=== PATIENT | female | born 1950 | race Caucasian/White ===

== ENCOUNTER → 2018-02-22 | Outpatient (CLI) | payer OTHER | LOC: FIMAGING 14:24 | PROVIDERS: ATTEND Orthopaedic Surgery | DX: M17.11 Unilateral primary osteoarthritis, right knee (principal); Z01.818 Encounter for other preprocedural examination ==

== ENCOUNTER 2018-03-17 09:25 | Inpatient (IN) | payer OTHER ==
--- NOTE | 2018-02-18 16:20 | ASMTCMCOM ---
CM Note CM Note Notes: Spoke with pt per Aiyana Napier request. Pt reports she likely has no one who can stay with her post-op and will likely be interested in SNF. Pt was emailed the [facility] SNF list and link to joint class to [email or web address], she reports she may be most interested in [facility]. Date Signed: 02/18/2018 04:20 PM Electronically Signed By:TYLER Barajas
--- NOTE | 2018-03-17 05:58 | PDHPUP ---
History & Physical Update H&P update statement: This history and physical update is based on an assessment of the patient which was completed after admission or registration (within 24 hours), but prior to the surgery/procedure. H&P update: H&P reviewed & patient examined, no change in patient's condition since H&P completed
[~2018-03-17 09:25] MED LIST: ACETAMINOPHEN 325 MG TAB PO ONE; DEXAMETHASONE 4 MG/ML VIAL IVP ONE; FAMOTIDINE 20 MG TAB PO ONE; ROPIVACAINE 0.2% 80 MG, EPINEPHrine 0.2 MG, KETOROLAC TROMETHAMINE 30 MG in SYRINGE 0 ML IU ONE; TRANEXAMIC ACID 3,000 MG in NS (SYRINGE) 50 ML IRR ONE; ceFAZolin 2 GM/DEXTROSE 100 ML IV ONE
[2018-03-17] MEDS ORDERED: LIDOCAINE 1% 2 ML INJ ID PRN (09:59)
[2018-03-17] MEDS ORDERED: LIDOCAINE 1% 2 ML INJ ONE (10:03)
[2018-03-17] MEDS ORDERED: TRANEXAMIC ACID 3,000 MG/50 ML BAG IRR ONE (10:15)
[2018-03-17] MEDS ORDERED: MIDAZOLAM 2 MG/2 ML VIAL IVP ONE (11:44)
[2018-03-17] MEDS ORDERED: fentaNYL 100 MCG/2 ML INJ ONE (12:15)
[2018-03-17] MEDS ORDERED: PROPOFOL/EMULSION 500 MG/50 ML BOTTLE IV ONE (12:16)
[2018-03-17] MEDS ORDERED: BUPIVACAINE 0.5% 30 ML SDV ONE (12:30)
[2018-03-17] MEDS ORDERED: fentaNYL 100 MCG/2 ML INJ IVP PRN (12:54)
[2018-03-17] MEDS ORDERED: NALOXONE HCL 0.4 MG/ML INJ IVP PRN (12:54)
[2018-03-17] MEDS ORDERED: LR 500 ML IV PRN (12:54)
[2018-03-17] MEDS ORDERED: ONDANSETRON 4 MG/2 ML VIAL IVP PRN ×2 (12:54→13:55)
[2018-03-17] MEDS ORDERED: ALBUTEROL 3 ML DEYVIAL IH PRN (12:54)
[2018-03-17] MEDS ORDERED: PROMETHAZINE HCL 25 MG/ML INJ IVP PRN ×2 (12:54→13:55)
[2018-03-17] MEDS ORDERED: oxyCODONE IR 5 MG TAB PO PRN (12:54)
[2018-03-17] MEDS ORDERED: LABETALOL HCL 5 MG/ML 20 ML MDV IVP PRN (12:54)
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
[2018-03-17] MEDS ORDERED: ONDANSETRON DISINTEGRATING 4 MG TAB PO PRN (13:55)
[2018-03-17] MEDS ORDERED: BISACODYL 10 MG SUPP PR PRN (13:55)
[2018-03-17] MEDS ORDERED: METOCLOPRAMIDE 10 MG/2 ML VIAL IVP PRN (13:55)
[2018-03-17] MEDS ORDERED: MAGNESIUM HYDROXIDE 30 ML UDCUP PO PRN (13:55)
[2018-03-17] MEDS ORDERED: PROMETHAZINE HCL 25 MG SUPPR PR PRN (13:55)
[2018-03-17] MEDS ORDERED: TEMAZEPAM 15 MG CAP PO PRN (13:55)
[2018-03-17] MEDS ORDERED: LACTULOSE 20 GM/30 ML UDCUP PO PRN (13:55)
[2018-03-17] MEDS ORDERED: CYCLOBENZAPRINE 10 MG TAB PO PRN (13:55)
[2018-03-17] MEDS ORDERED: DIPHENOXYLATE/ATROPINE LOMOTIL 1 TAB PO PRN (13:55)
[2018-03-17] MEDS ORDERED: diphenhydrAMINE 25 MG CAP PO PRN (13:55)
[2018-03-17] MEDS ORDERED: POLYETHYLENE GLYCOL 3350 17 GM PKT PO PRN (13:55)
--- NOTE | 2018-03-17 13:55 | POSTOPPROG ---
Post Op Note Date of Operation: 03/17/18 Surgeon: Bill Sarkar Automobile Service Writer: cuba sarkar PA-C Anesthesiologist: dr. serna Anesthesia: Spinal, Other (Specify) (adductor canal block) Pre-op Diagnosis: Right knee OA Post-op Diagnosis: same Indication: right knee pain Procedure: R TKA robot assisted and sensor assisted Findings: severe knee OA Inf/Abcess present in the surg proc area at time of surgery?: No EBL: 50-100
[2018-03-17] MEDS ORDERED: ceFAZolin 2 GM/DEXTROSE 100 ML IV SCH (14:00)
[2018-03-17] MEDS ORDERED: LR 1,000 ML IV SCH (14:00)
--- NOTE | 2018-03-17 14:09 | POSTANESTH ---
Post Anesthetic Evaluation Cardiovascular Status: Normal, Stable Respiratory Status: Normal, Stable Level of Consciousness/Mental Status: Can Participate in Eval Pain Control: Adequate, Prn Tx Ordered Nausea/Vomiting Control: Adequate, Prn Tx Ordered Complications Possibly Related to Anesthesia: None Noted (Adductor canal block done in PACU. Bupivicaine .5% 20 cc given. Ultrasound guidance. No complications. Images in patient's chart.)
--- NOTE | 2018-03-17 16:54 | PDMN ---
Medical Necessity Medical necessity: [facility] S700 knee arthroplasty: per Dr Napier please keep INPT - pt 67 yr old female OP: TKA
[2018-03-17] MEDS: ACETAMINOPHEN 325 MG TAB PO SCH (19:32)
[2018-03-17] MEDS: SENNOSIDES/DOCUSATE SODIUM TAB PO SCH (22:00)
[2018-03-17] MEDS: ASPIRIN 81 MG CHEWABLE TAB PO SCH (22:00)
[2018-03-17] MEDS: ceFAZolin 2 GM/DEXTROSE 100 ML IV SCH (22:00)
[2018-03-17] MEDS: FAMOTIDINE 20 MG TAB PO SCH (22:00)
[2018-03-18] MEDS: ACETAMINOPHEN 325 MG TAB PO SCH ×3 (00:11→12:47)
[2018-03-18] MEDS: ceFAZolin 2 GM/DEXTROSE 100 ML IV SCH (05:18)
[2018-03-18] MEDS: ASPIRIN 81 MG CHEWABLE TAB PO SCH (08:32)
[2018-03-18] MEDS: FAMOTIDINE 20 MG TAB PO SCH (08:32)
[2018-03-18] MEDS: oxyCODONE IR 5 MG TAB PO PRN ×2 (08:33→13:44)
[2018-03-18] MEDS: SENNOSIDES/DOCUSATE SODIUM TAB PO SCH (08:33)
--- NOTE | 2018-03-18 08:34 | PDIAF ---
- Diagnosis Diagnosis: s/p R TKA Code Status: Full Code - Medication Management Discharge Medications: electronically signed and located in the Home Medication List. - Orders Services needed: Physical Therapy Diet Recommendation: no restrictions on diet Diet Texture: Regular Texture Diet Harmeet Stockings Discontinue Date: 2 weeks Wound Care Instructions: see instructions below. remove incision dressing is two weeks. then it does not need to be covered. if drainage occurs, dressing will turn black, please contact Dr. Chauhan's office for further eval if any incision dressing questions arise Additional Instructions: Joint Protocol-Knee Replacement Follow up with Dr. Lindquist office as scheduled After surgery instructions: You received an adductor canal nerve block yesterday. It alleviates pain for approximately 30 hours. Once the numbness to your anterior coelho wears off, your pain will increase. Start taking narcotics even low dose narcotic pain meds as the numbness decreases Take Aspirin 81mg by mouth morning and evening for 4 weeks (helps to prevent blood clots) Wear thigh high HARMEET hose on both legs during the daytime for 2 weeks (helps to prevent blood clots and decrease swelling in the surgical leg). It is ok to remove HARMEET hose at night time to give your legs a break. It is common for swelling and bruising to occur in the entire surgical leg even extending to the foot, if concerned call Dr. Ryan office [phone] Elevate the surgical leg with the ankle above the hip several times a day. ~ Ideally anytime you are resting throughout the day. Attempt to keep the knee straight while elevating by placing pillows under the ankle instead of the knee to elevate. This may be painful, so please do as much as tolerated. ~This will help you achieve full knee extension. Use a walker for 7-14 days Start outpatient physical therapy in 7-10 days Wear an popeye wrap on the knee for 3-4 days after surgery, then it is no longer needed Do exercises in the book 2-3 times a day Ice at least 3-5 times a day for 30 minutes each time, if not more often. ~~We also recommend using the ice machine before falling asleep to help with pain If you have further questions that are not addressed here, please look at the information packet handed to you at the preop appointment. ~Most will be answered on the FAQs, after surgery instructions and incision care pages. *IF YOU HAVE A LIFE THREATENING EMERGENCY, CALL 911. FOR NON-LIFE THREATENING ISSUES, PLEASE CALL DR. LINDQUIST OFFICE FIRST. A PHYSICIAN IS CASTING MACHINE OPERATOR HELPER 24/11. Incision/Dressing Care: May shower tomorrow, Incision dressing is waterproof. Do not soak in water, but shower is ok. Keep the incision (davila) dressing clean and dry. If the incision dressing gets soiled or wet underneath, change dressing to the dressing given to you by the hospital. (davila dressing will turn black if drainage occurs) Remove incision dressing (davila one) two weeks after surgery. ~Leave steri strips alone. ~They will fall off on their own. Do not have anyone else remove the incision dressing prior to the stated recommendation (2 weeks after surgery). ~If there are incision concerns, contact Dr. Ryan office. ~(Aiyana or Dr. Napier may remove earlier if concerns arise) If incision site (davila dressing) has drainage call Dr. Ryan office, [phone]. ~Aiyana and Dr. Napier may ask you to come into the office for further evaluation - Follow Up Care Current Providers and Referrals: AALIYAH FOOTE [Other] Aiyana Napier PA [Physician Trim Setter] - 04/08/18 10:30 am
[2018-03-18] MEDS ORDERED: ROSUVASTATIN CALCIUM 10 MG TAB PO SCH (09:00)
--- NOTE | 2018-03-18 10:47 | GOP ---
DATE OF OPERATION: 03/17/2018 SURGEON: Denice Napier MD RESPIRATORY THERAPY DIRECTOR: SHELIA Amaya. ANESTHESIA: Spinal. PREOPERATIVE DIAGNOSIS: Right knee osteoarthritis. POSTOPERATIVE DIAGNOSIS: Right knee osteoarthritis. PROCEDURE PERFORMED: Right total knee arthroplasty with computer navigation, robotic assist. FINDINGS: ESTIMATED BLOOD LOSS: 30 cc. INDICATIONS: The patient is a 67-year-old female with severe and progressive pain and deformity of t he right knee unresponsive to conservative care. The risks and benefits of surgical intervention wer e explained in detail. DESCRIPTION OF PROCEDURE: The patient was brought to the operative room and placed on the table in t he supine position. Spinal anesthesia was induced without difficulty. A pneumatic tourniquet was appl ied about the right proximal thigh, and the leg was prepped and draped in a sterile fashion. The leg aviles was applied. After exsanguination by elevation the tourniquet was inflated to 250 mmHg. Incision was made anterior medial from the tibial tuberosity to a point 2 cm proximal to the superior pole of the patella. Medial parapatellar arthrotomy was carried out from the superior pole of the pa tella and posteriorly in line with the fibers of the Type II VMO. The medial collateral ligament was elevated and the infrapatellar fat pad was resected. The patella was everted and the articular surface was excised. A 32 mm patellar button was placed. Attention was turned first to the distal aspect of the femur. After exposure of the femur, 2 half pi ns were placed for fixation of the femoral array. In a similar fashion, 2 pins were placed anteromed ial on the tibia for fixation of the tibial array. External land marking and registration of the hip center were performed without difficulty. Internal femoral and tibial registration were carried out without difficulty and the femoral and tibial checkpoints were placed and verified for accuracy. Attention was turned to the femur. The foot print for the size 3 femoral component was cut with the saw using the Emgo robotic system and verified for accuracy against the CT based plan. In a similar f ashion, the saw was used to cut the footprint for the size 3 tibial component using the Emgo system an d verified for accuracy against the CT based plan. The tibial articular surface was excised without d ifficulty, followed by the intercondylar box cut. The knee was extended and the remnants of the medial and lateral meniscus were excised. The posterior capsule was injected with ropivacaine, epinephrine and Toradol. A size 3 tibial tray was positioned . Trial reduction was then carried out. There was excellent range of motion, alignment, and stability using the 3 x 9 mm polyethylene. All trials were then removed. The joint was thoroughly irrigated and carefully dried. The press-fit c omponents were implanted. The permanent 3 x 9 mm polyethylene was placed without difficulty. The tourniquet was deflated and all bleeders were coagulated. The wound was thoroughly irrigated and closed using interrupted sutures of 2-0 Vicryl for the joint capsule. The subcu was closed with 3-0 V icryl and the skin with 4-0 Monocryl. Dermabond and Steri-Strips were applied followed by a compress tej dressing. The patient was then moved from the operating room to the recovery room in good conditi on, having tolerated the procedure well. PATHOLOGY: Severe medial patellofemoral osteoarthritis. /[id number]/MODL
[2018-03-18 12:07] VITALS: BP 151/79
[2018-03-18] MEDS ORDERED: PNEUMOC 13-VAL CONJ-DIP CRM/PF 0.5 ML SYR (PREVNAR 13) IM ONE (13:13)
--- NOTE | 2018-03-18 14:21 | ASMTCMCOM ---
CM Note CM Note Notes: Pt had planned knee surgery. OT/PT rec SNF. PT medically stable for d/c to [facility]. Orders and non-triggering PASRR sent in Allscripts. Lisa with CV scheduled wc transport for 1330. CELINE Wen to call report. Date Signed: 03/18/2018 02:20 PM Electronically Signed By:TYLER Barajas
--- NOTE | 2018-03-18 14:22 | ASMTLACE ---
BOWEN Length of stay for Answers: 2 days current admission Acuity / Level of Answers: Yes Care: Did the patient have an inpatient admission? Comorbidities - select Answers: Opioid dependence all that apply / Chronic pain Other Notes: Hx of seizure # of Emergency department Answers: 0 visits in the last 6 months Social determinants Answers: Mental health diagnosis (anxiety, depression, pers onality disorders, etc.) Score: 13 Date Signed: 03/18/2018 02:21 PM Electronically Signed By:TYLER Barajas
--- NOTE | 2018-03-18 16:17 | ASDISCHSUM ---
Discharge Information Plan Status:SNF Medically Cleared to Leave: Discharge Date:03/18/2018 02:12 PM D/C Disposition:Longterm Facility ADT D/C Disposition:Longterm Facility Projected Discharge Date:03/18/2018 11:00 AM Transportation at D/C:Wheelchair Van Discharge Delay Reason: Follow-Up Date:03/18/2018 11:00 AM Discharge Slot: Final Diagnosis: Placement Information Referral Type:*Retirement/SNF Referral ID:[id number] [facility] Address [facility]:[address] Address 2: City:[place] Selection Factors: State:[place] Patient Contact Information Contact Name:EMMANUELLE Relationship:Friend Address: Home Phone: City: [place] Phone: [facility] Code: Email: Financial Information Financial Class:Medicare Advantage Plans Primary Plan Desc:[facility] ADVANTAGE PLANS Primary Plan Number:[id number] Secondary Plan Desc: Secondary Plan Number: Assessment Information [facility] CM Progress Note CM Note CM Note Notes: Spoke with pt per Aiyana Napier request. Pt reports she likely has no one who can stay with her post-op and will likely be interested in SNF. Pt was emailed the [facility] SNF list and link to [email or web address] to [email or web address], she reports she may be most interested in [facility]. Date Signed: 02/18/2018 04:20 PM Electronically Signed By:TYLER Barajas LACE LACE Length of stay for Answers: 2 days current admission Acuity / Level of Answers: Yes Care: Did the patient have an inpatient admission? Comorbidities - select Answers: Opioid dependence all that apply / Chronic pain Other Notes: Hx of seizure # of Emergency department Answers: 0 visits in the last 6 months Social determinants Answers: Mental health diagnosis (anxiety, depression, pers onality disorders, etc.) Score: 13 Date Signed: 03/18/2018 02:21 PM Electronically Signed By:TYLER Barajas [facility] CM Progress Note CM Note CM Note Notes: Pt had planned knee surgery. OT/PT rec SNF. PT medically stable for d/c to [facility]. Orders and non-triggering PASRR sent in Allscripts. Lisa with CV scheduled wc transport for 1330. CELINE Wen to call report. Date Signed: 03/18/2018 02:20 PM Electronically Signed By:TYLER Barajas Intervention Information
--- NOTE | 2018-03-18 17:15 | SOAPPROG ---
SOAP Progress Note Assessment/Plan: Assessment: Patient is doing well POD 1 s/p R TKA Pain management: pain is well controlled on oral pain meds. VTE ppx: recommend aspirin 81 mg BID for 4 weeks, cont HARMEET and SCDs D/c planning: d/c to SNF today pending release from PT patient is doing better than anticipated Plan: 03/18/18 17:14 03/18/18 17:15 Subjective: Nivia is doing well, denies SOB, chest pain and N/V. patient is surprised she is doing so well Objective: Vital Signs Temp Pulse Resp BP Pulse Ox 36.7 C 60 17 151/79 H 97 03/18/18 12:00 03/18/18 14:04 03/18/18 12:00 03/18/18 12:00 03/18/18 12:00 Laboratory Results 03/18/18 04:47 03/17/18 03/18/18 03/19/18 05:59 05:59 05:59 Intake Total 2850 Output Total 1500 200 Balance 1350 -200 RLE; incision dressing is clean and dry, NVi, +p/df ICD10 Worksheet Patient Problems: Problems Problem Status Onset Primary localized osteoarthritis of right knee Acute
--- NOTE | 2018-03-19 06:20 | GDS ---
ADMISSION DIAGNOSIS: Right knee osteoarthritis. DISCHARGE DIAGNOSIS: Right knee osteoarthritis. PROCEDURE: Right total knee arthroplasty, robotic assisted. VTE PROPHYLAXIS: Recommend aspirin 81 mg twice a day for 4 weeks. BRIEF DESCRIPTION OF HOSPITAL STAY: Patient was admitted for an elective joint arthroplasty. The pa laci tolerated the procedure well and has passed physical therapy. The patient was given appropriat e antibiotic prophylaxis and venous thromboembolism prophylaxis. The patient's pain was well control led on oral pain medication, patient was holding down food, and had urinated. Decision was made to d ischarge the patient. The patient was given post-operative prescriptions pre-operatively. PLAN: To follow up as scheduled with Dr. Napier's office April 08 at 10:30 a.m. /[id number]/MODL
== END 2018-03-18 14:12 | DRG 470 ==
LOC: F3N 09:25 → OBSVTOIN 09:25 → EDSTATUS 11:00 → F3N 14:54
PROVIDERS: ADMIT Orthopaedic Surgery; ATTEND Orthopaedic Surgery
DX: M17.11 Unilateral primary osteoarthritis, right knee (principal); Z23 Encounter for immunization
CPT/HCPCS: 97116-GP; 97161-GP; 97165-GO; G0009; G8978-GP-CJ; G8979-GP-CI; G8987-GO-CJ; G8988-GO-CI; J0171; J0690; J1100; J1885; J2250; J2704; J2795; J3010

== ENCOUNTER → 2018-06-25 | Outpatient (CLI) | payer OTHER | LOC: FIMAGING 13:40 | PROVIDERS: ATTEND Orthopaedic Surgery | DX: Z03.89 Encounter for observation for other suspected diseases and conditions ruled out (principal); Z96.659 Presence of unspecified artificial knee joint ==